=== PATIENT | female | born 1940 | race Caucasian/White ===

== ENCOUNTER 2019-01-10 17:08 | Emergency (ER) | payer MEDICARE, OTHER ==
[2019-01-10] MEDS: Meclizine 25 MG Tab PO ONE (17:43)
[2019-01-10] MEDS: diphenhydrAMINE 50 MG/ML SDV IVPUSH ONE (17:43)
[2019-01-10] MEDS: LORazepam 2 MG/ML SDV IVPUSH ONE (17:44)
[2019-01-10] MEDS: Sodium Chloride 0.9% 10 ML Syringe FLUSH PRN (17:51)
[2019-01-10] MEDS ORDERED: Potassium Chloride 20 MEQ Tab.ER PO ONE (17:52)
--- NOTE | 2019-01-10 17:58 | EDM.PDOC ---
ED HPI GENERAL MEDICAL PROBLEM - General Chief Complaint: General Stated Complaint: dizziness Time Seen by Provider: 01/10/19 17:25 Source of Information: Reports: Patient History Limitations: Reports: No Limitations - History of Present Illness INITIAL COMMENTS - FREE TEXT/NARRATIVE: Patient presented to the ED because sudden onset of vertigo this morning. she described it as spinning sensation, she took meclizine 12.5 mg and thought it will go away but it didn't. She had same episode sometime in 2014 and none since then. She recently have sinus congestion, and dry cough bu no fever or chills. - Related Data Allergies Allergy/AdvReac Type Severity Reaction Status Date / Time No Known Allergies Allergy Verified 11/05/15 08:27 Home Meds: Home Meds Lisinopril/Hydrochlorothiazide [Lisinopril-Hctz 10-12.5 mg Tab] 1 tab PO BID 09/22 [History] Ascorbic Acid 600 mg PO DAILY 11/04/15 [History] Aspirin [Ecotrin] 81 mg PO DAILY 11/04/15 [History] Gurvinder Cit/Mag/D3/Zn/Hide Washer/Félix/Bor [Citracal-Vit D + Magnesium] 1 each PO DAILY [History] Cetirizine HCl [Zyrtec] 10 mg PO DAILY PRN 11/04/15 [History] Cholecalciferol (Vitamin D3) [Vitamin D] 600 units PO DAILY 11/04/15 [History] Meclizine [Antivert] 12.5 mg PO Q4HR 01/10/19 [History] Meclizine [Antivert] 50 mg PO Q6H PRN #30 tab.chew 01/10/19 [Rx] Rosuvastatin [Crestor] 10 mg PO DAILY 01/10/19 [History] Past Medical History HEENT History: Reports: Allergic Rhinitis, Cataract, Glaucoma, Impaired Vision Cardiovascular History: Reports: High Cholesterol, Hypertension Gastrointestinal History: Reports: Other (See Below) Other Gastrointestinal History: HX OF COLON CANCER 3 YEARS AGO Other Genitourinary History: STATES THAT CURRENTLY DIAGNOSED WITH KIDNEY PROBLEM ; DOES NOT REMEMBER THE MEDICAL TERM FOR IT. 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: Neurological History: Reports: Vertigo Other Endocrine/Metabolic History: THYROID NODULES Other Hematologic History: NEUTROPENIA Oncologic (Cancer) History: Reports: Colon - Infectious Disease History Infectious Disease History: Reports: Chicken Pox, Measles, Mumps - Past Surgical History Endocrine Surgical History: Reports: Thyroid Biopsy Social & Family History - Caffeine Use Caffeine Use: Reports: Coffee - Living Situation & Occupation Living situation: Reports: ED ROS GENERAL - Review of Systems Review Of Systems: See Below Constitutional: Reports: No Symptoms HEENT: Reports: Sinus Problem Respiratory: Reports: No Symptoms Cardiovascular: Reports: No Symptoms Endocrine: Reports: No Symptoms GI/Abdominal: Reports: No Symptoms : Reports: No Symptoms Musculoskeletal: Reports: No Symptoms Skin: Reports: No Symptoms Neurological: Reports: No Symptoms Psychiatric: Reports: No Symptoms Hematologic/Lymphatic: Reports: No Symptoms Immunologic: Reports: No Symptoms ED EXAM, GENERAL - Physical Exam Exam: See Below Exam Limited By: No Limitations General Appearance: Alert, No Apparent Distress Eye Exam: Bilateral Eye: PERRL Ears: Normal External Exam, Normal Canal Nose: Normal Inspection, Normal Mucosa, No Blood Throat/Mouth: Normal Inspection, Normal Lips, Normal Teeth Head: Atraumatic, Normocephalic Neck: Normal Inspection Cardiovascular: Normal Peripheral Pulses, Regular Rate, Rhythm, No Edema, No Gallop, No JVD, No Murmur, No Rub GI/Abdominal: Normal Bowel Sounds, Soft, Non-Tender, No Organomegaly, No Distention, No Abnormal Bruit, No Mass Back Exam: Normal Inspection, Full Range of Motion Extremities: Normal Inspection, Normal Range of Motion Neurological: Alert, Oriented, Normal Cognition Course - Vital Signs Text/Narrative:: labs reviewed with patient and EKG-NSR Trop-neg Head CT-neg K-3.3 klor con 40 meq po x1 ativan 1 mg IVx1 meclizine 25 mg po x1 benadryl 25 mg IV x1 ......................................................................... ................................................................................ ....................................................... Patient's was upset that she has to wait , I explained to him that we have 2 other patient that needs to be seen who came ahead of her and Aida was with the other patient and should be with her shortly but is very impatient. Last Recorded V/S: Last Vital Signs Temp 36.6 C 01/10/19 18:05 Pulse 77 01/10/19 19:57 Resp 18 01/10/19 19:57 BP 137/86 01/10/19 19:57 Pulse Ox 98 01/10/19 19:57 - Orders/Labs/Meds Orders: Active Orders 24 hr Category Date Time Status Head wo Cont [CT] Stat Exams 01/10/19 17:59 Taken Saline Lock Insert [OM.PC] Routine Oth 01/10/19 17:17 Ordered EKG 12 Lead [EK] Routine Ther 01/10/19 17:16 Ordered Labs: Laboratory Tests 01/10/19 01/10/19 Range/Units 17:30 17:30 WBC 4.6 (4.5-12.0) X10-3/uL RBC 4.65 (3.23-5.20) x10(6)uL Hgb 13.4 (11.5-15.5) g/dL Hct 41.0 (30.0-51.3) % MCV 88.1 (80-96) fL MCH 28.9 (27.7-33.6) pg MCHC 32.8 (32.2-35.4) g/dL RDW 11.9 (11.5-15.5) % Plt Count 172 (125-369) X10(3)uL MPV 9.0 (7.4-10.4) fL Neut % (Auto) 55.7 (46-82) % Lymph % (Auto) 31.3 (13-37) % [place] % (Auto) 8.0 (4-12) % Eos % (Auto) 4 (1.0-5.0) % Baso % (Auto) 2 (0-2) % Neut # (Auto) 2.5 (1.6-8.3) # Lymph # (Auto) 1.4 (0.6-5.0) # [place] # (Auto) 0.4 (0.0-1.3) # Eos # (Auto) 0.2 (0.0-0.8) # Baso # (Auto) 0.1 (0.0-0.2) # Sodium 139 (135-145) mmol/L Potassium 3.3 L (3.5-5.3) mmol/L Chloride 103 (100-110) mmol/L Carbon Dioxide 30 (21-32) mmol/L BUN 17 (7-18) mg/dL Creatinine 0.8 (0.55-1.02) mg/dL Est Cr Clr Drug Dosing TNP Estimated GFR (MDRD) > 60 (>60) BUN/Creatinine Ratio 21.3 H (9-20) Glucose 111 (80-116) mg/dL Calcium 8.9 (8.6-10.2) mg/dL Meds: Medications Discontinued Medications Generic Name Dose Route Start Last Admin Trade Name Freq PRN Reason Stop Dose Admin Diphenhydramine HCl 25 mg 01/10/19 17:26 01/10/19 17:43 Benadryl IVPUSH 01/10/19 17:27 25 mg ONETIME ONE Administration Lorazepam 1 mg 01/10/19 17:26 01/10/19 17:44 Ativan IVPUSH 01/10/19 17:27 1 mg ONETIME ONE Administration Meclizine HCl 25 mg 01/10/19 17:21 01/10/19 17:43 Antivert PO 01/10/19 17:22 25 mg ONETIME ONE Administration Potassium Chloride 40 meq 01/10/19 17:52 Klor-Con M20 PO 01/10/19 17:53 ONETIME ONE Sodium Chloride 10 ml 01/10/19 17:17 01/10/19 17:51 Saline Flush FLUSH 10 ml ASDIRECTED PRN Administration Keep Vein Open Departure - Departure Time of Disposition: 19:40 Disposition: Home, Self-Care 01 Condition: Good Clinical Impression: BPV (benign positional vertigo) - Discharge Information Prescriptions: Meclizine [Antivert] 50 mg PO Q6H PRN #30 tab.chew PRN Reason: vertigo Instructions: Benign Positional Vertigo Referrals: PCP,None [Ordering Only Provider] - Forms: ED Department Discharge Additional Instructions: rest for the night increase oral fluids take meclizine 50 mg every 6 hours for 48 hours then take it as needed follow up if symptoms persist/worsens - My Orders Last 24 Hours: My Active Orders 01/10/19 17:16 EKG 12 Lead [EK] Routine 01/10/19 17:17 Saline Lock Insert [OM.PC] Routine 01/10/19 17:59 Head wo Cont [CT] Stat - Assessment/Plan Last 24 Hours: My Active Orders 01/10/19 17:16 EKG 12 Lead [EK] Routine 01/10/19 17:17 Saline Lock Insert [OM.PC] Routine 01/10/19 17:59 Head wo Cont [CT] Stat
[2019-01-10 21:02] VITALS: BP 137/86; PULSE 77
== END 2019-01-10 20:15 | disposition home or self-care (01) ==
LOC: FB.ED 17:08
DX: H81.10 Benign paroxysmal vertigo, unspecified ear (principal); I10 Essential (primary) hypertension; Z79.82 Long term (current) use of aspirin; Z79.899 Other long term (current) drug therapy
CPT/HCPCS: 36415; 70450; 80048; 85025; 96374; 96375; 99284; A9270; J1200; J2060

== ENCOUNTER 2020-10-14 10:43 | Emergency (ER) | payer MEDICARE, OTHER ==
--- NOTE | 2020-10-14 11:28 | EDM.PDOC ---
ED HPI GENERAL MEDICAL PROBLEM - General Stated Complaint: HIGH BP Time Seen by Provider: 10/14/20 11:05 Source of Information: Reports: Patient - History of Present Illness INITIAL COMMENTS - FREE TEXT/NARRATIVE: 80-year-old lady came to the emergency department with her friend due to high blood pressure and fatigue. She has had a significant amount of stress lately including her being hospitalized for a stroke and is now in an acute rehab facility. She states that she woke up this morning and felt fatigued but had no other symptoms. After her shower and having some breakfast she checked her blood pressure and found that it was in the 190s over 100s. She came to the emergency department for evaluation. She denies chest pain, shortness of breath, fever, chills, upper respiratory symptoms, change in bowel or bladder habits. - Related Data Allergies Allergy/AdvReac Type Severity Reaction Status Date / Time No Known Allergies Allergy Verified 10/14/20 11:15 Home Meds: Home Meds Ascorbic Acid 600 mg PO DAILY 11/04/15 [History] Aspirin [Ecotrin] 81 mg PO DAILY 11/04/15 [History] Gurvinder Cit/Mag/D3/Zn/Risk Control Field Representative/Félix/Bor [Citracal-Vit D + Magnesium] 1 each PO DAILY 11/04/15 [History] Cetirizine HCl [Zyrtec] 10 mg PO DAILY PRN 11/04/15 [History] Cholecalciferol (Vitamin D3) [Vitamin D] 600 units PO DAILY 11/04/15 [History] Meclizine [Antivert] 12.5 mg PO Q4HR 01/10/19 [History] Rosuvastatin [Crestor] 10 mg PO DAILY 01/10/19 [History] Latanoprost/Pf [Latanoprost 0.005% Eye Drop] 1 drop EYEBOTH BEDTIME 10/14/20 [History] Losartan [Cozaar] 100 mg PO DAILY 10/14/20 [History] Metoprolol Succinate [Toprol Xl] 50 mg PO DAILY 10/14/20 [History] Past Medical History HEENT History: Reports: Allergic Rhinitis, Cataract, Glaucoma, Impaired Vision Cardiovascular History: Reports: High Cholesterol, Hypertension Gastrointestinal History: Reports: Other (See Below) Other Gastrointestinal History: HX OF COLON CANCER 3 YEARS AGO Other Genitourinary History: STATES THAT CURRENTLY DIAGNOSED WITH KIDNEY PROBLEM; DOES NOT REMEMBER THE MEDICAL TERM FOR IT. 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: Neurological History: Reports: Vertigo Other Endocrine/Metabolic History: THYROID NODULES Other Hematologic History: NEUTROPENIA Oncologic (Cancer) History: Reports: Colon - Infectious Disease History Infectious Disease History: Reports: Chicken Pox, Measles, Mumps - Past Surgical History Endocrine Surgical History: Reports: Thyroid Biopsy Social & Family History - Family History Family Medical History: No Pertinent Family History - Caffeine Use Caffeine Use: Reports: Coffee - Living Situation & Occupation Living situation: Reports: ED ROS GENERAL - Review of Systems Review Of Systems: See Below Constitutional: Reports: Malaise, Fatigue HEENT: Reports: No Symptoms Respiratory: Reports: No Symptoms Cardiovascular: Reports: Lightheadedness Endocrine: Reports: Fatigue GI/Abdominal: Reports: No Symptoms : Reports: No Symptoms Musculoskeletal: Reports: No Symptoms Skin: Reports: No Symptoms Neurological: Reports: No Symptoms Psychiatric: Reports: Anxiety Hematologic/Lymphatic: Reports: No Symptoms Immunologic: Reports: No Symptoms ED EXAM, GENERAL - Physical Exam Exam: See Below Exam Limited By: No Limitations General Appearance: Alert, Anxious Eye Exam: Bilateral Eye: EOMI Head: Atraumatic, Normocephalic Neck: Normal Inspection Respiratory/Chest: No Respiratory Distress, Lungs Clear, Normal Breath Sounds Cardiovascular: Normal Peripheral Pulses, No Edema, No Gallop, No Murmur, Bradycardia Peripheral Pulses: 2+: Radial (L), Radial (R), Dorsalis Pedis (L), Dorsalis Pedis (R) GI/Abdominal: Normal Bowel Sounds, Soft, Non-Tender Back Exam: Normal Inspection. No: CVA Tenderness (R), CVA Tenderness (L) Extremities: Normal Inspection, No Pedal Edema Neurological: Alert, Oriented, CN II-XII Intact, Normal Cognition Psychiatric: Anxious Skin Exam: Warm, Dry, Intact Course - Vital Signs Text/Narrative:: Review of laboratory analysis shows grossly normal with no concerns. Patient was able to relax in a cool dark room and her blood pressure improved to 155/82. I discussed with the patient a trial of hydroxyzine but the patient deferred. She has an appointment with neurology to discuss her difficulties with vertigo tomorrow. Last Recorded V/S: Last Vital Signs Temp 36.4 C 10/14/20 10:53 Pulse 57 L 10/14/20 11:45 Resp 17 10/14/20 11:45 BP 160/73 H 10/14/20 11:45 Pulse Ox 98 10/14/20 11:45 Orthostatic Blood Pressure [ 150/80 Standing] Orthostatic Blood Pressure [ 166/79 Sitting] Orthostatic Blood Pressure [ 153/78 Supine] - Orders/Labs/Meds Orders: Active Orders 24 hr Category Date Time Status EKG Documentation Completion [RC] ASDIRECTED Care 10/14/20 11:18 Ordered EKG 12 Lead [EK] Routine Ther 10/14/20 11:17 Ordered Labs: Laboratory Tests 10/14/20 10/14/20 10/14/20 Range/Units 11:00 11:00 11:00 WBC 4.6 (3.0-10.3) x10-3/uL RBC 4.70 (3.60-5.20) x10(6)uL Hgb 13.8 (11.4-15.5) g/dL Hct 41.2 (34.2-48.2) % MCV 87.7 (76.7-100.5) fL MCH 29.3 (23.9-33.9) pg MCHC 33.4 (31.9-34.8) g/dL RDW 13.3 (12.3-16.5) % Plt Count 169 (151-488) x10(3)uL MPV 7.8 (7.1-12.4) fL Neut % (Auto) 64.0 (30.8-76.2) % Lymph % (Auto) 22.9 (18.4-52.1) % [place] % (Auto) 7.6 (4.4-15.7) % Eos % (Auto) 3.7 (0.6-8.1) % Baso % (Auto) 1.8 H (0.2-1.5) % Neut # (Auto) 3.0 (1.5-6.3) x10-3/uL Lymph # (Auto) 1.1 (1.0-4.4) x10-3/uL [place] # (Auto) 0.4 (0.3-1.0) x10-3/uL Eos # (Auto) 0.2 (0.0-0.8) x10-3/uL Baso # (Auto) 0.1 (0.0-0.1) x10-3/uL Sodium 143 (135-145) mmol/L Potassium 3.9 (3.5-5.3) mmol/L Chloride 107 (100-110) mmol/L Carbon Dioxide 31 (21-32) mmol/L BUN 12 (7-18) mg/dL Creatinine 0.9 (0.55-1.02) mg/dL Est Cr Clr Drug Dosing 40.74 mL/min Estimated GFR (MDRD) > 60 (>60) BUN/Creatinine Ratio 13.3 (9-20) Glucose 89 (80-116) mg/dL Calcium 8.8 (8.6-10.2) mg/dL Total Bilirubin 0.6 (0.1-1.3) mg/dL AST 18 (5-25) IU/L ALT 26 (12-36) U/L Alkaline Phosphatase 76 (56-112) IU/L Troponin I 5.5 (4.0-60.3) pg/mL Total Protein 6.8 (6.0-8.0) g/dL Albumin 3.4 (3.2-4.6) g/dL Globulin 3.4 g/dL Albumin/Globulin Ratio 1.0 Meds: Medications Discontinued Medications Generic Name Dose Route Start Last Admin Trade Name Freq PRN Reason Stop Dose Admin Hydroxyzine HCl 25 mg 10/14/20 12:16 10/14/20 12:24 Hydroxyzine Hcl 25 Mg Tab PO 10/14/20 12:17 25 mg ONETIME ONE Administration Departure - Departure Time of Disposition: 12:44 Disposition: Home, Self-Care 01 Clinical Impression: Anxiety about health Instructions: Managing Anxiety, Adult Additional Instructions: Patient will follow up with neurology as scheduled tomorrow. Patient will take meclizine, previously prescribed, for symptoms of vertigo. Sepsis Event Note (ED) - Focused Exam Vital Signs: Vital Signs Temp Pulse Resp BP Pulse Ox 10/14/20 11:45 57 L 17 160/73 H 98 10/14/20 11:15 61 18 148/84 H 96 10/14/20 10:53 36.4 C 62 18 163/82 H 99 - My Orders Last 24 Hours: My Active Orders 10/14/20 11:17 EKG 12 Lead [EK] Routine 10/14/20 11:18 EKG Documentation Completion [RC] ASDIRECTED - Assessment/Plan Last 24 Hours: My Active Orders 10/14/20 11:17 EKG 12 Lead [EK] Routine 10/14/20 11:18 EKG Documentation Completion [RC] ASDIRECTED
--- NOTE | 2020-10-14 11:32 | PCM.EKG ---
#1 Interpretation EKG Date: 10/14/20 Time: 10:57 EKG Interpretation Comments: Normal sinus rhythm, rate 61, normal axis, flat T waves in V2 and V3 but no obvious ST-T segment abnormalities
[2020-10-14 12:20] VITALS: BP 160/73; PULSE 57
[2020-10-14] MEDS: hydrOXYzine HCl 25 MG Tab PO ONE ×2 (12:24→14:01)
== END 2020-10-14 13:15 | disposition home or self-care (01) ==
LOC: FB.ED 10:43
DX: F41.9 Anxiety disorder, unspecified (principal); E78.00 Pure hypercholesterolemia, unspecified; I10 Essential (primary) hypertension; Z79.899 Other long term (current) drug therapy; Z79.82 Long term (current) use of aspirin
CPT/HCPCS: 36415; 80053; 84484; 85025; 93005; 99283-25; A9270-GY

== ENCOUNTER 2021-04-26 11:25 | Emergency (ER) | payer MEDICARE, OTHER ==
[2021-04-27 09:29] VITALS: BP 169/76; PULSE 58
== END 2021-04-26 12:40 | disposition home or self-care (01) ==
LOC: FB.ED 11:25
DX: I16.0 Hypertensive urgency (principal); F41.9 Anxiety disorder, unspecified; I10 Essential (primary) hypertension; E78.00 Pure hypercholesterolemia, unspecified; Z79.82 Long term (current) use of aspirin; Z79.899 Other long term (current) drug therapy
CPT/HCPCS: 99282; 99283

== ENCOUNTER 2023-12-15 08:58 | Emergency (ER) | payer MEDICARE, OTHER ==
[2023-12-15 09:25] VITALS: BP 188/92; PULSE 63
[2023-12-15] MEDS: Ondansetron 4 MG/2 ML SDV IVPUSH ONE (09:32)
[2023-12-15] MEDS: Lactated Ringers 1,000 ML IV SCH (09:32)
[2023-12-15 09:41] LABS: BASOPHILS PERCENT AUTO 0.1 % (0.2-1.5); EOSINOPHILS ABSOLUTE AUTO 0.1 x10-3/uL (0.0-0.8); EOSINOPHILS PERCENT AUTO 0.6 % (0.6-8.1); HEMATOCRIT 40.3 % (34.2-48.2); HEMOGLOBIN 13.7 g/dL (11.4-15.5); LYMPHOCYTES ABSOLUTE AUTO 1.3 x10-3/uL (1.0-4.4); LYMPHOCYTES PERCENT AUTO 14.4 % (18.4-52.1); MEAN CORPUSCULAR HEMOGLOBIN 29.6 pg (23.9-33.9); MEAN CORPUSCULAR HGB CONC 33.9 g/dL (31.9-34.8); MEAN CORPUSCULAR VOLUME 87.2 fL (76.7-100.5); MEAN PLATELET VOLUME 8.2 fL (7.1-12.4); MONOCYTES ABSOLUTE AUTO 0.7 x10-3/uL (0.3-1.0); NEUTROPHILS ABSOLUTE AUTO 6.9 x10-3/uL (1.5-6.3); NEUTROPHILS PERCENT AUTO 76.9 % (30.8-76.2); PLATELET COUNT,PLT 197 x10(3)uL (151-488); RED BLOOD CELL COUNT 4.62 x10(6)uL (3.60-5.20); RED CELL DISTRIBUTION WIDTH 12.5 % (12.3-16.5); WHITE BLOOD CELL COUNT,WBC 8.9 x10-3/uL (3.0-10.3)
[2023-12-15 09:42] LABS: BLOOD UREA NITROGEN,BUN 14 mg/dL (7-18); BUN/CREATININE RATIO 17.5 (9-20); CALCIUM 9.1 mg/dL (8.6-10.2); CARBON DIOXIDE,CO2 30 mmol/L (21-32); CHLORIDE,CL 104 mmol/L (100-110); CREATININE 0.8 mg/dL (0.55-1.02); EST CRCL DRUG DOSING (CG) 43.62 mL/min; ESTIMATED GFR 74 mL/min (>60); GLUCOSE RANDOM 107 mg/dL (80-116); POTASSIUM,K 3.3 mmol/L (3.5-5.3); SODIUM,NA 139 mmol/L (135-145)
[2023-12-15] MEDS: Potassium Chloride 20 MEQ Tab.ER PO ONE (09:55)
[2023-12-15 10:46] LABS: BILIRUBIN,URINE NEGATIVE (NEGATIVE); GLUCOSE,URINE NORMAL (NORMAL); KETONES,URINE NEGATIVE (NEGATIVE); LEUKOCYTE ESTERASE,URINE NEGATIVE (NEGATIVE); NITRITE,URINE NEGATIVE (NEGATIVE); OCCULT BLOOD,URINE NEGATIVE (NEGATIVE); PROTEIN,URINE NEGATIVE (NEGATIVE); UROBILINOGEN,URINE NORMAL (NEGATIVE)
[2023-12-15 10:47] LABS: APPEARANCE,URINE CLEAR (CLEAR); COLOR,URINE YELLOW (YELLOW)
== END 2023-12-15 11:00 | disposition home or self-care (01) ==
LOC: FB.ED 08:58
DX: K52.9 Noninfective gastroenteritis and colitis, unspecified (principal); E87.6 Hypokalemia; E78.00 Pure hypercholesterolemia, unspecified; I10 Essential (primary) hypertension; Z90.710 Acquired absence of both cervix and uterus; Z79.82 Long term (current) use of aspirin; Z79.899 Other long term (current) drug therapy
CPT/HCPCS: 36415; 80048; 81003; 85025; 93005; 93010; 96361; 96374; 99283; 99284-25; A9270-GY; J2405; J7120

== ENCOUNTER → 2024-03-13 | Day surgery (SDC) | payer MEDICARE ==
[~2024-03-13] MED LIST: Lidocaine 2% 100 MG/5 ML Syringe IVPUSH ONE; Lidocaine 2% Viscous Solution 15 ML UD PO ONE; Midazolam 1 MG/ML 2 ML SDV IV ONE; Propofol 200 MG/20 ML SDV IV ONE; Sodium Chloride 0.9% 10 ML Syringe FLUSH PRN
[2024-03-13 09:14] VITALS: BP 118/69; PULSE 62
[2024-03-13] MEDS: Lactated Ringers 1,000 ML IV SCH (09:22)
== END ==
LOC: FB.SDS 08:26
PROVIDERS: ATTEND Surgery
DX: K29.50 Unspecified chronic gastritis without bleeding (principal); K20.90 Esophagitis, unspecified without bleeding; K44.9 Diaphragmatic hernia without obstruction or gangrene; R63.4 Abnormal weight loss; E78.5 Hyperlipidemia, unspecified; Z79.82 Long term (current) use of aspirin; Z79.899 Other long term (current) drug therapy
CPT/HCPCS: 00731; 43239; 88305; 88342; 99100; A9270; J2250; J2704; J7120